=== PATIENT | female | born 1965 | race Caucasian/White ===

== ENCOUNTER 2023-11-07 15:17 | Inpatient (IN) | payer MEDICARE, MEDICAID, SELFPAY ==
--- NOTE | 2023-11-07 16:02 | XRR_ITS ---
PROCEDURE INFORMATION: Exam: XR Bilateral Hips Exam date and time: 11/07/2023 4:29 PM Age: 58 years old Clinical indication: Injury or trauma; Fall; Blunt trauma (contusions or hematomas); Left; Prior surgery; Surgery date: 6+ months; Surgery type: RT hip TECHNIQUE: Imaging protocol: Radiologic exam of the bilateral hips. Views: 2 views of hips with pelvis when performed. COMPARISON: No relevant prior studies available. FINDINGS: Bones/joints: Patient has had a previous right hip arthroplasty. No evidence for loosening of the surgical hardware. Mildly comminuted acute fracture of the l proximal/mid eft femoral neck with mild impaction along its posterior margin. No dislocation. Mild degenerative change at the left hip. Moderate degenerative changes of the right and left sacroiliac joints. Multilevel degenerative changes of varying severity in the visualized spine. Bones are diffusely osteopenic. Soft tissues: Mild soft tissue swelling around the proximal left femur. No radiopaque foreign body. Heterotopic bone formation lateral to the right hip that may be due to sequela of remote trauma and/or prior surgery. XR/XR hip BI 3-4V wo/w pel [id number] IMPRESSION: 1. Mildly comminuted acute fracture of the l proximal/mid eft femoral neck with mild impaction along its posterior margin. 2. Mild soft tissue swelling around the proximal left femur. 3. Patient has had a previous right hip arthroplasty. No evidence for loosening of the surgical hardware. 4. Heterotopic bone formation lateral to the right hip that may be due to sequela of remote trauma and/or prior surgery. 5. Incidental/nonacute findings are listed in the report.
--- NOTE | 2023-11-07 17:33 | PC.NURSE ---
NURSE RECEIVED VERBAL CONSENT FROM GUARDIAN VIA PHONE CALL
--- NOTE | 2023-11-07 17:38 | CTR_ITS ---
PROCEDURE INFORMATION: Exam: CT Abdomen And Pelvis Without Contrast Exam date and time: 11/07/2023 6:01 PM Age: 58 years old Clinical indication: Injury or trauma; Fall; Blunt; Generalized; Additional info: Fall/trauma TECHNIQUE: Imaging protocol: Computed tomography of the abdomen and pelvis without contrast. Sagittal and coronal reformatted images were created and reviewed. Radiation optimization: All CT scans at this facility use at least one of these dose optimization techniques: automated exposure control; mA and/or kV adjustment per patient size (includes targeted exams where dose is matched to clinical indication); or iterative reconstruction. COMPARISON: CR (PELVIS, ) 11/07/2023 4:29 PM RADIATION DOSE METRICS: Total DLP (mGy-cm): 753.74 FINDINGS: Limitations: Evaluation of solid organs and vasculature is limited without intravenous contrast. Lungs: Dependent atelectasis in the visualized lungs. Pleural spaces: No pleural effusion. Heart: Visualized cardiac chambers are unremarkable. Liver: The liver is unremarkable. Gallbladder and bile ducts: The gallbladder is unremarkable. No biliary ductal dilatation. Pancreas: The pancreas is unremarkable. No pancreatic ductal dilatation. Spleen: The spleen is unremarkable. Adrenal glands: The right and left adrenal glands are unremarkable. Kidneys and ureters: Nonobstructing stone in the right kidney measuring 3.4 mm. The left kidney is unremarkable. The right and left ureters are unremarkable. Stomach and bowel: No obstruction. No mucosal thickening. Appendix: The appendix is visualized and is unremarkable. No findings to suggest acute appendicitis. Intraperitoneal space: No free intraperitoneal air. No ascites. No loculated fluid collections to suggest an abscess. Vasculature: Mild atherosclerotic changes in the visualized arteries. No evidence for aortic aneurysm. Lymph nodes: No lymphadenopathy. Urinary bladder: The bladder is unremarkable. The bladder is unremarkable. Reproductive: Patient has had a previous hysterectomy. The ovaries are not definitely visualized, not an expected in a postmenopausal female. This may be due to ovarian atrophy. Alternatively, the patient may have had a previous bilateral oophorectomy. Bones/joints: The patient has had a previous right hip arthroplasty. Mild degenerative changes of the right and left sacroiliac joints. Heterotopic bone formation adjacent to the right hip that may be due to prior surgery and/or trauma. NuvaRing acute, comminuted fracture of the left femoral neck extending from the subcapital femur posteriorly to the proximal/mid femoral neck anteriorly. There is mild impaction of the posterior portion of the fracture. No dislocation. Mild degenerative change at the left hip. Multilevel degenerative changes of varying severity in the visualized spine. Soft tissues: Mild enlargement of the lower left psoas muscle and the left iliacus muscle, consistent with intramuscular hematomas. Mild hemorrhage in the adjacent lower retroperitoneum. Mild subcutaneous contusion lateral to the left hip. CT/CT abdomen pelvis wo con [id number] IMPRESSION: 1. Mild enlargement of the lower left psoas muscle and the left iliacus muscle, consistent with intramuscular hematomas. Mild hemorrhage in the adjacent lower retroperitoneum. If there is clinical concern for acute bleeding, repeat CT scan of the abdomen/pelvis with intravenous contrast would be recommended. 2. Mild degenerative changes of the right and left sacroiliac joints. Heterotopic bone formation adjacent to the right hip that may be due to prior surgery and/or trauma. NuvaRing acute, comminuted fracture of the left femoral neck extending from the subcapital femur posteriorly to the proximal/mid femoral neck anteriorly. There is mild impaction of the posterior portion of the fracture. 3. Nonobstructing right renal stone. 4. Mild subcutaneous contusion lateral to the left hip.
--- NOTE | 2023-11-07 18:12 | P.HP_ITS ---
Providers/Chief Complaint 2 Chief Complaint: LEFT HIP PAIN S/P FALL History of Present Illness Kita Farias is a 58 year old female resident of [facility], nonverbal at baseline, ambulates using a walker, uses diabetic diet presented after sustaining a fall, as per the niece at the bedside patient sometimes experiences weakness of her lower extremities and that possibly happened today when she was try to get out of bed. She fell on the floor, in the ER she has been diagnosed with hip fracture. Dr. Ma will see her in the morning. Hospitalist will admit. As per the family patient is very anxious and would like to keep her dolls under the blanket She does not use oxygen Will place Castellano catheter Will keep her pain under control with opioids will add bowel regimen IV fluids overnight Review of Systems 2 General: Reports: ROS unobtainable due to medical condition PFSH Acute 2 PFSH: Medical History (Updated 11/07/23 @ 18:49 by Mora Sky MD) Diabetic acidosis, type II Nonverbal Cerebral palsy Mother had measles, congenital Surgical History (Updated 11/07/23 @ 18:49 by Mora Sky MD) H/O oophorectomy Physical Exam 2 Narrative: Patient is laying flat Anxious Tachycardic Currently on room air Left leg twisted rotated outwards Patient seems to be in pain Awake and alert Able to make eye contact Nonverbal She would like to hold her dolls in a blanket Data 11/07/23 17:47 11/07/23 17:47 A&P Assessment and plan (1) Fracture of hip, left, closed: Qualifiers: Encounter type: initial encounter Qualified Code(s): S72.002A - Fracture of unspecified part of neck of left femur, initial encounter for closed fracture (2) Accidental fall: Qualifiers: Encounter type: initial encounter Qualified Code(s): W19.XXXA - Unspecified fall, initial encounter (3) Traumatic retroperitoneal hematoma: Plan Hip fracture Traumatic retroperitoneal hematoma Monitor CBC H&H Continue IV fluids N.p.o. Opioids Place Castellano catheter I will repeat contrast with angiogram Nonobstructive right renal stone Will place Castellano catheter IV fluids overnight Patient is diabetic Gets very anxious She likes to keep her dolls in a blanket Full code Resident of [facility] Bed rest for now Dr. Ma has been consulted Attestations 2 Medical Necessity Statement*: More than 2 midnights anticipated Diagnoses Fracture of hip, left, closed S72.002A Encounter type: initial encounter Accidental fall W19.XXXA Encounter type: initial encounter Traumatic retroperitoneal hematoma S36.892A
--- NOTE | 2023-11-07 18:25 | ED_ITS ---
HPI - Extremity Problem 2 General: Chief complaint: Extremity Injury, Lower Stated complaint: LEFT HIP PAIN S/P FALL Time Seen by Provider: 11/07/23 15:20 History of Present Illness: 58-year-old female presents to the emerg ency department via EMS personnel from her [facility]. Patient is nonverbal and has a history of developmental delay and cerebral palsy. Patient did receive 2 mg of Ativan via EMS secondary to anxiety. Per the family member that is accompanying her the patient is normally ambulatory but had an accidental unwitnessed fall today at the [facility] and the nursing staff at the [facility] stated that she was found on the floor. Patient does have tenderness to palpation to the left hip area, otherwise she is unable to provide any medical history. Review of Systems 2 General: Reports: ROS unobtainable due to medical condition and ROS unobtainable due to mental status [facility] ED 2 PFSH: Medical History (Updated 11/08/23 @ 14:50 by Ashley Evans MD) Diabetic acidosis, type II Nonverbal Cerebral palsy Mother had measles, congenital Surgical History (Updated 11/07/23 @ 18:49 by Mora Sky MD) H/O oophorectomy Physical Exam 2 Narrative: EXAM NARRATIVE: Constitutional: the patient appears well nourished and has significant delayed cognitive development, nonverbal and history of cerebral palsy. Vital signs as documented. Very anxious appearing. She is alert at present and the family member that is accompanying her states this is her baseline mental status. Head, eyes, ears, nose, mouth, throat: Normocephalic, atraumatic. Pupils-equal, round, reactive to light. No scleral icterus. Normal-appearing external ears. Normal appearing nasal turbinates, no drainage. No obvious oral lesions Neck: Supple, trachea is midline, no lymphadenopathy, no jugular venous distension, thyromegaly, or carotid bruits. No palpable step-offs, tenderness, or crepitus, normal alignment. Patient is not having any difficulty with flexion, extension or lateral rotation. Lungs: clear to auscultation to all lung hassan. Symmetrical rise and fall of chest, no obvious signs of increased work of breathing at present. Cardiac: Regular rate and rhythm, positive S1, S2. No murmurs, rubs or gallops that I can appreciate Abdomen: Soft, non-tender to palpation, normal active bowel sounds to all quadrants. No palpable masses, no organomegaly and abdominal bruits. Extremities: 2+ pulses in the upper extremities that are equal bilaterally, 2+ pulses in the lower extremities that are equal bilaterally. Left hip and greater trochanter area is severely tender to palpation, the patient's left lower extremity is shortened and internally rotated. Capillary refill is less than 3 seconds. She has sensation to all extremities, she moves remaining extremities without difficulty. Skin: Warm, dry, intact. Course 2 Vital Signs: Vital signs: Vital Signs Temperature 97.9 F 11/08/23 15:12 Pulse Rate 109 H 11/08/23 15:12 Respiratory Rate 17 11/08/23 15:12 Blood Pressure 151/77 11/08/23 15:12 Pulse Oximetry 93 11/08/23 15:12 Oxygen Delivery Me thod Room Air 11/08/23 15:12 Oxygen Flow Rate 2 11/07/23 20:51 MDM - Extremity (Nontraumatic) Medical Decision Making Physical exam completed and documented I will obtain laboratory evaluation to include a CBC, CMP and radiographic examination as I am concerned that she does have a right hip/pelvis fracture. I have reviewed the radiographic exam and it does appear that the patient has a comminuted impacted left hip fracture. I have consulted the orthopedic physician on-call Dr. Ma and discussed the patient's case and she advised that she would consult and request that I contact the hospitalist physician for admission to the hospital service. I did contact the hospitalist Dr. Sky and he accepted the patient for admission and additional evaluation. Medical Records I reviewed the patient's medical records. Lab Data I reviewed the patient's lab results. 11/08/23 05:16 11/08/23 05:16 Radiology Impressions Hip/Pelvis X-Ray 11/07/23 16:02 IMPRESSION: 1. Mildly comminuted acute fracture of the l proximal/mid eft femoral neck with mild impaction along its posterior margin. 2. Mild soft tissue swelling around the proximal left femur. 3. Patient has had a previous right hip arthroplasty. No evidence for loosening of the surgical hardware. 4. Heterotopic bone formation lateral to the right hip that may be due to sequela of remote trauma and/or prior surgery. 5. Incidental/nonacute findings are listed in the report. Abdomen/Pelvis CT 11/07/23 17:38 IMPRESSION: 1. Mild enlargement of the lower left psoas muscle and the left iliacus muscle, consistent with intramuscular hematomas. Mild hemorrhage in the adjacent lower retroperitoneum. If there is clinical concern for acute bleeding, repeat CT scan of the abdomen/pelvis with intravenous contrast would be recommended. 2. Mild degenerative changes of the right and left sacroiliac joints. Heterotopic bone formation adjacent to the right hip that may be due to prior surgery and/or trauma. NuvaRing acute, comminuted fracture of the left femoral neck extending from the subcapital femur posteriorly to the proximal/mid femoral neck anteriorly. There is mild impaction of the posterior portion of the fracture. 3. Nonobstructing right renal stone. 4. Mild subcutaneous contusion lateral to the left hip. ADDENDUM: 11/07/232009 Urgent results were discussed with ROSIE Dobbins on 11/07/2023 at 8:07 PM LOADING [employer]OVEL OILER. Abdomen/Pelvis CTA 11/07/23 18:56 IMPRESSION: 1. Stable enlargement of the left psoas muscle and left iliacus muscle consistent with intramuscular hematomas. Stable adjacent mild hemorrhage in the lower left retroperitoneum. No evidence for active bleeding. 2. Stable comminuted and displaced fracture of the left femoral neck extending from the subcapital femur posteriorly to the proximal/mid femoral neck anteriorly. Stable posterior angulation of the distal fracture fragment. 3. Stable nonobstructing right renal stone. 4. Mild subcutaneous contusion lateral to the left hip. 5. 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 6. Mild atherosclerotic disease. No occlusion, thrombosis, stenosis, extravasation, dissection, or aneurysm. 7. Incidental/nonacute findings are listed in the report. COMMENTS: Urgent results were discussed with ROSIE Dobbins on 11/07/2023 at 8:07 PM LOADING SH[employer]EL OILER. Laboratory Results WBC 11.79 10^3/uL (3.29-11.43) H 11/07/23 17:47 RBC 3.52 10^6/uL (3.85-5.65) L 11/07/23 17:47 Hgb 10.00 g/dL (11.27-16.99) L 11/07/23 17:47 Hct 32.0 % (36-47) L 11/07/23 17:47 MCV 90.9 fl (85-98) 11/07/23 17:47 MCH 28.4 pg (27-33) 11/07/23 17:47 MCHC 31.3 g/dL (30-55) 11/07/23 17:47 RDW 14.7 % (12.1-15.1) 11/07/23 17:47 Plt Count 351 10^3/cmm (157-399) 11/07/23 17:47 MPV 9.0 fL (7.4-10.4) 11/07/23 17:47 Neut % (Auto) 77.1 % 11/07/23 17:47 Lymph % (Auto) 15.2 % 11/07/23 17:47 [place] % (Auto) 7.3 % 11/07/23 17:47 Eos % (Auto) 0.0 % 11/07/23 17:47 Baso % (Auto) 0.1 % 11/07/23 17:47 Neut # (Auto) 9.09 10^3/uL (1.8-7.7) H 11/07/23 17:47 Lymph # (Auto) 1.8 10^3/uL (0.8-4.8) 11/07/23 17:47 [place] # (Auto) 0.9 10^3/uL (0.2-0.9) 11/07/23 17:47 Eos # (Auto) 0.0 10^3/uL (0.0-0.8) 11/07/23 17:47 Baso # (Auto) 0.0 10^3/uL (0.0-0.1) 11/07/23 17:47 Nucleated RBC % (auto) 0 % 11/07/23 17:47 Nucleated RBCs # 0.0 /100WBC 11/07/23 17:47 PT 12.50 SECONDS (12.1-14.9) 11/07/23 17:47 INR 0.91 (0.8-1.2) 11/07/23 17:47 APTT 26.4 SECONDS (23.9-36.7) 11/07/23 17:47 Sodium 139 mmol/L (136-145) 11/07/23 17:47 Potassium 5.1 mmol/L (3.5-5.1) 11/07/23 17:47 Chloride 100 mmol/L (98-107) 11/07/23 17:47 Carbon Dioxide 26 mmol/L (22-29) 11/07/23 17:47 Anion Gap 18.1 (5-19) 11/07/23 17:47 BUN 28 mg/dL (6-20) H 11/07/23 17:47 Creatinine 1.2 mg/dL (0.5-0.9) H 11/07/23 17:47 GFR Calculation 46.0 mL/min (90-130) L 11/07/23 17:47 Glucose 216 mg/dL (65-115) H 11/07/23 17:47 Calculated Osmolality 300 mOsm/kg (285-295) H 11/07/23 17:47 Calcium 9.9 mg/dL (8.5-10.5) 11/07/23 17:47 Total Bilirubin 0.2 mg/dL (0.15-1.2) 11/07/23 17:47 AST 19 U/L (0-32) 11/07/23 17:47 ALT 17 U/L (0-33) 11/07/23 17:47 Alkaline Phosphatase 80 U/L (35-105) 11/07/23 17:47 Total Protein 7.6 g/dL (6.6-8.7) 11/07/23 17:47 Albumin 4.3 g/dL (3.5-5.2) 11/07/23 17:47 Globulin 3.3 g/dL (1.3-4.6) 11/07/23 17:47 All radiology interpretation(s) finalized by discharge Discharge Plan Discharge Patient Disposition: Admitted As Inpatient Admit Provider: Mora Sky Clinical Impression: Fracture of hip, left, closed, Accidental fall Condition: Stable Coding Level of Care Code ED Filling Winder for Reji Mcnally
[2023-11-07 18:31] VITALS: BP 123/74; PULSE 119; O2SAT 92
[2023-11-07 18:32] LABS: Basophils % 0.1 %; Lymphocytes # 1.8 10^3/uL (0.8-4.8); Lymphocytes % 15.2 %; Mean Corpuscular HGB Conc 31.3 g/dL (30-55); Mean Corpuscular Hemoglobin 28.4 pg (27-33); Mean Corpuscular Volume 90.9 fl (85-98); Monocytes # 0.9 10^3/uL (0.2-0.9); Monocytes % 7.3 %; Neutrophils # 9.09 10^3/uL (1.8-7.7); Neutrophils % 77.1 %; Nucleated Red Blood Cells % 0 %; Platelet Count 351 10^3/cmm (157-399); Red Blood Count 3.52 10^6/uL (3.85-5.65); Red Cell Distribution Width 14.7 % (12.1-15.1); White Blood Count 11.79 10^3/uL (3.29-11.43)
[2023-11-07 18:47] LABS: INR 0.91 (0.8-1.2)
[2023-11-07 18:48] LABS: Partial Thromboplastin Time 26.4 SECONDS (23.9-36.7)
[2023-11-07 18:53] LABS: Alanine Aminotransferase 17 U/L (0-33); Albumin Level 4.3 g/dL (3.5-5.2); Alkaline Phosphatase 80 U/L (35-105); Anion Gap 18.1 (5-19); Aspartate Amino Transferase 19 U/L (0-32); Blood Urea Nitrogen 28 mg/dL (6-20); Calcium 9.9 mg/dL (8.5-10.5); Carbon Dioxide 26 mmol/L (22-29); Chloride 100 mmol/L (98-107); Globulin 3.3 g/dL (1.3-4.6); Glucose 216 mg/dL (65-115); Osmolality Calculated 300 mOsm/kg (285-295); Potassium 5.1 mmol/L (3.5-5.1); Sodium 139 mmol/L (136-145); Total Bilirubin 0.2 mg/dL (0.15-1.2); Total Protein 7.6 g/dL (6.6-8.7)
--- NOTE | 2023-11-07 18:56 | CTR_ITS ---
PROCEDURE INFORMATION: Exam: CTA Abdomen and Pelvis With Contrast Exam date and time: 11/07/2023 7:15 PM Age: 58 years old Clinical indication: Injury or trauma; Blunt trauma (contusions or hematomas); Pelvic area; Prior surgery; Surgery date: 6+ months; Surgery type: Oophorectomy; Patient HX: From long-term for unwitnessed fall. Left psoas/iliacus muscle hematoma with retroperitoneal hemorrhage noted on abd/pel w/o. Decreased hgb and hct. Left hip fracture. ; Additional info: Retroperitoneal hematoma TECHNIQUE: Imaging protocol: Computed tomographic angiography of the abdomen and pelvis with contrast. Exam focused on the arteries. 3D rendering (Not supervised by radiologist): MIP and/or 3D reconstructed images were created by the technologist. Radiation optimization: All CT scans at this facility use at least one of these dose optimization techniques: automated exposure control; mA and/or kV adjustment per patient size (includes targeted exams where dose is matched to clinical indication); or iterative reconstruction. Contrast material: OMNI 350; Contrast volume: 100 ml; Contrast route: INTRAVENOUS (IV); COMPARISON: CT abdomen pelvis wo con [id number] 11/07/2023 6:01 PM RADIATION DOSE METRICS: Total DLP (mGy-cm): 1913.28 FINDINGS: Lungs: Dependent atelectasis in the lungs bilaterally. Pleural spaces: No pleural effusion. Heart: Visualized portions of the heart are unremarkable. Aorta: Mild calcified and noncalcified plaque. No occlusion, thrombosis, stenosis, extravasation, dissection, or aneurysm. Celiac trunk and mesenteric arteries: Unremarkable. No occlusion, thrombosis, stenosis, extravasation, dissection, or aneurysm. Renal arteries: Right renal artery is unremarkable. 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 No occlusion, thrombosis, stenosis, extravasation, dissection, or aneurysm. Right iliac arteries: Mild calcified plaque. No occlusion, thrombosis, stenosis, extravasation, dissection, or aneurysm. Left iliac arteries: Mild calcified plaque. No occlusion, thrombosis, stenosis, extravasation, dissection, or aneurysm. Liver: The liver is unremarkable. Gallbladder and bile ducts: The gallbladder is unremarkable. No biliary ductal dilatation. Pancreas: The pancreas is unremarkable. No pancreatic ductal dilatation. Spleen: The spleen is unremarkable. Adrenal glands: The right and left adrenal glands are unremarkable. Kidneys and ureters: Stable nonobstructing stones in the right kidney, the larger measures 3.6 mm. The left kidney is unremarkable. The right and left ureters are unremarkable. Stomach and bowel: No obstruction. No mucosal thickening. Appendix: The appendix is visualized and is unremarkable. No findings to suggest acute appendicitis. Intraperitoneal space: No free intraperitoneal air. No ascites. No loculated fluid collections to suggest an abscess. Retroperitoneal space: Stable enlargement of the left psoas muscle and left iliacus muscle consistent with intramuscular hematomas. Stable adjacent mild hemorrhage in the lower left retroperitoneum. Lymph nodes: No lymphadenopathy. Urinary bladder: The bladder is unremarkable for the degree of distension. Reproductive: The uterus, right ovary, and left ovary are unremarkable. Bones/joints: Stable comminuted and displaced fracture of the left femoral neck extending from the subcapital femur posteriorly to the proximal/mid femoral neck anteriorly. Stable posterior angulation of the distal fracture fragment. Mild degenerative change at the left hip. Stable changes consistent with a right hip arthroplasty with heterotopic bone formation adjacent to the right hip that may be due to prior trauma and/or surgery. Multilevel degenerative changes of varying severity in the visualized spine. Bones are diffusely osteopenic. Soft tissues: Mild subcutaneous contusion lateral to the left hip. CT/CT angio abdomen pelvis [id number] IMPRESSION: 1. Stable enlargement of the left psoas muscle and left iliacus muscle consistent with intramuscular hematomas. Stable adjacent mild hemorrhage in the lower left retroperitoneum. No evidence for active bleeding. 2. Stable comminuted and displaced fracture of the left femoral neck extending from the subcapital femur posteriorly to the proximal/mid femoral neck anteriorly. Stable posterior angulation of the distal fracture fragment. 3. Stable nonobstructing right renal stone. 4. Mild subcutaneous contusion lateral to the left hip. 5. 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 6. Mild atherosclerotic disease. No occlusion, thrombosis, stenosis, extravasation, dissection, or aneurysm. 7. Incidental/nonacute findings are listed in the report. COMMENTS: Urgent results were discussed with ROSIE Dobbins on 11/07/2023 at 8:07 PM WRONG ADDRESS CLERK.
[2023-11-07] MEDS: iohexol 350 mg/mL 500 mL Btl (per mL) IV (19:24)
[2023-11-07 20:14] LABS: Hematocrit 30.7 % (36-47)
[2023-11-07] MEDS: ondansetron 2 mg/ML SDV 2 mL 4 MG IVP (20:20)
[2023-11-07 20:22] VITALS: BP 163/98; PULSE 121; RESP 21; O2SAT 91
[2023-11-07] MEDS: morphine 4 mg/mL SDV 1 mL IVP (20:22)
[2023-11-07 20:51] VITALS: BP 149/104; PULSE 136; RESP 26; O2SAT 96
--- NOTE | 2023-11-07 21:01 | PC.NURSE ---
Will called to report Dr Mcclain finding for the patient's non-contrast CT. Patient has a stable left Femoral head fracture with stable intramuscular hematomas surrounding then fracture.
[2023-11-07 21:03] VITALS: BP 162/93; PULSE 120; RESP 24; TEMP 37.2; O2SAT 99
--- NOTE | 2023-11-07 22:11 | P.CONIM_ITS ---
Providers/Reason For Consult 2 Consulting Physician/Specialty*: Ashley Evans MD - Orthopedics Reason for Consult*: Left subcapital hip fracture Requesting Physician: Brian Lu MD Attending Physician: Mora Sky MD History of Present Illness History of Present Illness Kita Farias is a 58 year old female who resides iIn a long-term care facility secondary to cerebral palsy and developmental delay. The patient is nonverbal, but reportedly was ambulatory prior to this fall. Patient had an unwitnessed fall and was found on the floor. She had pain over the left hip area.n a long- term care facility secondary to cerebral palsy and developmental delay. The patient is nonverbal, but reportedly was ambulatory prior to this fall. Patient had an unwitnessed fall and was found on the floor. She had pain over the left hip area. She was brought to the emergency department per EMS, and was found to have a subcapital left hip fracture. Review of Systems 2 General: Reports: ROS unobtainable due to medical condition and ROS unobtainable due to mental status Medications/Allergies Home Medications Medication Instructions Recorded Confirmed Last Taken Type acetaminophen 500 mg tablet 500 mg PO BID 11/08/23 11/08/23 11/07/23 08:39 History aspirin 81 mg chewable tablet 81 mg PO DAILY 11/08/23 11/08/23 11/07/23 08:39 History bisacodyl 10 mg rectal suppository 10 mg [place] DAILY PRN Constipation 11/08/23 11/08/23 Unknown History bisacodyl 5 mg tablet,delayed 5 mg PO DAILY PRN Constipation 11/08/23 11/08/23 10/15/23 08:26 History release (Dulcolax (bisacodyl)) cholecalciferol (vitamin D3) 25 25 mcg PO DAILY 11/08/23 11/08/23 11/07/23 08:39 History mcg (1,000 unit) tablet hydrocodone 5 mg-acetaminophen 325 1 tab PO BID PRN Pain 11/08/23 11/08/23 11/07/23 13:13 History mg tablet insulin aspart U-100 100 unit/mL 6 unit SUBCUT TIDWM 11/08/23 11/08/23 11/07/23 08:39 History (3 mL) subcutaneous pen (Novolog FlexPen U-100 Insulin aspart) insulin degludec 100 unit/mL (3 18 unit SUBCUT BEDTIME 11/08/23 11/08/23 11/06/23 19:04 History mL) subcutaneous pen (Tresiba FlexTouch U-100 insulin) lisinopril 5 mg tablet 5 mg PO DAILY 11/08/23 11/08/23 11/07/23 08:39 History magnesium hydroxide 400 mg/5 mL 30 ml PO DAILY PRN Constipation 11/08/23 11/08/23 08/14/23 04:02 History oral suspension (Milk of Magnesia) metformin 1,000 mg tablet 1,000 mg PO BIDWM 11/08/23 11/08/23 11/07/23 08:39 History naloxone 0.4 mg/mL injection 0.4 mg SUBCUT Q3M PRN Opiate 11/08/23 11/08/23 Unknown History solution Reversal simvastatin 5 mg tablet 5 mg PO BEDTIME 11/08/23 11/08/23 11/06/23 17:09 History sodium phosphates 19 gram-7 118 ml [place] DAILY PRN Constipation 11/08/23 11/08/23 Unknown History gram/118 mL enema (Fleet Enema) Allergies Allergy/AdvReac Type Severity Reaction Status Date / Time oseltamivir [From Tamiflu] Allergy Unknown Verified 11/08/23 05:01 PFSH Acute 2 PFSH: Medical History (Updated 11/08/23 @ 14:50 by Ashley Evans MD) Diabetic acidosis, type II Nonverbal Cerebral palsy 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 X-rays and history have been reviewed the evening prior to surgical intervention. Data 11/08/23 05:16 11/08/23 05:16 Xray Ortho: My impression: I have personally reviewed the patient's imaging today as well as prior imaging from 2008 when the patient previously suffered a hip fracture. At that time, she had a completely displaced subcapital hip fracture which is visualized on x- rays and bipolar hip arthroplasty was placed. At the time of this admission, she again has a subcapital hip fracture, but it is impacted and slightly angulated with apex anterior angulation. A&P Assessment and plan (1) Subcapital fracture of left hip: This 58-year-old woman who has a diagnosis of cerebral palsy and is nonverbal but reportedly previously ambulatory is admitted with a subcapital left hip fracture with slight angulation. Upon admission, the patient was found to have bacteria in her urine, and she has been treated with greater than 12 hours of antibiotic therapy. The patient's sister who is power of deputy county attorney was contacted regarding therapy options. I discussed at length with her the risks and benefits of bipolar hip arthroplasty versus cannulated screws. She understands the potential risk of avascular necrosis with cannulated screw fixation, however, it is safer from the perspective of potential infection as well as dislocation. After this discussion, the sister agreed to proceed with cannulated screws, and this will be scheduled for the patient today. Consents will be signed verbally. Qualifiers: Encounter type: initial encounter Fracture type: closed Qualified Code(s): S72.012A - Unspecified intracapsular fracture of left femur, initial encounter for closed fracture (2) Accidental fall: Qualifiers: Encounter type: initial encounter Qualified Code(s): W19.XXXA - Unspecified fall, initial encounter (3) Traumatic retroperitoneal hematoma: (4) FLORINDA (acute kidney injury): (5) UTI (urinary tract infection): Coding Level of Care Code Acute Code for [facility] Fwd Diagnoses Closed subcapital fracture of left femur, initial encounter S72.012A Encounter type: initial encounter Fracture type: closed Accidental fall W19.XXXA Encounter type: initial encounter Traumatic retroperitoneal hematoma S36.892A FLORINDA (acute kidney injury) N17.9 UTI (urinary tract infection) N39.0
[2023-11-07 22:32] LABS: Glucose Point of Care 278 mg/dL (70-110)
[2023-11-07 22:45] LABS: Hematocrit 30.3 % (36-47)
[2023-11-07] MEDS: sodium chloride 0.9% 1,000 ML 75 ML IV (23:00)
[2023-11-08] VITALS (24 sets, daily range): BP systolic 91–156; BP diastolic 51–88; PULSE 71–122; RESP 12–20; TEMP 36.1–37.6; O2SAT 90–98
--- NOTE | 2023-11-08 | XR_ITS ---
WS: [id number] C-ARM RADIOGRAPHS LEFT HIP; 5 IMAGES HISTORY: OR PICS; LT HIP PINNING COMPARISON: None available. Intraoperative ORIF with 3 orthopedic screws stabilizing the femoral neck fracture in good position a nd alignment. IMPRESSION: Intraoperative imaging during ORIF of LEFT femoral neck fracture.
[2023-11-08 01:34] LABS: Add Urine Microscopic? YES
[2023-11-08 01:35] LABS: Glucose Urine UA 4+ (Normal); Ketones Urine 1+ (Negative); Protein Urine 1+ (Negative); Specific Gravity, Urine 1.015 (1.005-1.030); Urine Appearance SL Hazy (CLEAR); Urine Color Yellow (Yellow); pH Urine 5 (5-7)
[2023-11-08 01:36] LABS: Bacteria Urine 2+ /hpf; Bilirubin Urine Neg (Negative); Blood Urine Neg (Negative); Leukocyte Esterase Urine Trace (Negative); Mucus Urine 1+ /hpf; Nitrate Urine Positive (Negative); RBC Urine 0-4 /hpf (0-2); Squamous Epithelial Cell Urine 0-4 /hpf (0-5); Urobilinogen Urine Norm (Negative); WBC Urine 0-4 /hpf (0-5)
[2023-11-08 01:39] LABS: Glucose Point of Care 312 mg/dL (70-110)
[2023-11-08] MEDS: HYDROmorphone 1 mg/mL INJ 1 mL 0.2 MG IVP ×4 (02:12→18:12)
--- NOTE | 2023-11-08 02:39 | PC.NURSE ---
notified Dr russ of UA results, nitrate positive. order received for rocephin 1 gram IV Q24h given.
[2023-11-08] MEDS: cefTRIAXone 1,000 MG in sodium chloride 0.9% (plus) 50 ML 100 MG IV (03:34)
[2023-11-08] MEDS: acetaminophen 500 mg Tablet PO (04:29)
[2023-11-08 04:57] LABS: Glucose Point of Care 328 mg/dL (70-110)
[2023-11-08 05:28] LABS: Basophils % 0.1 %; Hematocrit 32.7 % (36-47); Lymphocytes # 1.4 10^3/uL (0.8-4.8); Lymphocytes % 14.8 %; Mean Corpuscular HGB Conc 31.8 g/dL (30-55); Mean Corpuscular Hemoglobin 28.8 pg (27-33); Mean Corpuscular Volume 90.6 fl (85-98); Monocytes # 0.8 10^3/uL (0.2-0.9); Monocytes % 8.3 %; Neutrophils # 7.26 10^3/uL (1.8-7.7); Neutrophils % 76.5 %; Nucleated Red Blood Cells % 0 %; Platelet Count 315 10^3/cmm (157-399); Red Blood Count 3.61 10^6/uL (3.85-5.65); Red Cell Distribution Width 14.4 % (12.1-15.1)
[2023-11-08 05:46] LABS: Blood Urea Nitrogen 22 mg/dL (6-20); Calcium 8.8 mg/dL (8.5-10.5); Carbon Dioxide 25 mmol/L (22-29); Chloride 103 mmol/L (98-107); Glucose 296 mg/dL (65-115); Magnesium 1.8 mg/dL (1.7-2.3); Osmolality Calculated 302 mOsm/kg (285-295); Sodium 139 mmol/L (136-145)
[2023-11-08 05:47] LABS: Anion Gap 16.6 (5-19); Potassium 5.6 mmol/L (3.5-5.1)
--- NOTE | 2023-11-08 07:46 | PC.NURSE ---
NPO d/t possible surgery for left hip. Pt unable to take medications with small sip of water, must be crushed in applesauce. Senna not given this AM d/t NPO/possible surgery.
[2023-11-08] MEDS: pantoprazole 40 mg SDV IVP ×2 (08:07→18:22)
[2023-11-08 09:10] LABS: Glucose Point of Care 247 mg/dL (70-110)
[2023-11-08] MEDS: calcium gluconate 0.9% NaCL 1 GM/50 ML PREMIX IV (10:09)
[2023-11-08] MEDS: insulin regular-human 10 UNIT in SYRINGE 1 EACH IVP (10:09)
--- NOTE | 2023-11-08 10:28 | PM.PN ---
Subjective Subjective: Blood sample is hemolyzed Will give insulin for hyperglycemia Recheck sugar within 15 to 30 minutes Charge nurse notified She does have positive nitrates and leukocyte esterase with bacteriuria Ceftriaxone was started overnight No fever or leukocytosis Spoke with Dr. Evans CT angiogram did not show active bleed I did not get a call back from vR Vitals/I&O/Wt Last Vital Signs Temp 97.9 F 11/08/23 07:20 Pulse 102 H 11/08/23 08:10 Resp 18 11/08/23 08:10 BP 156/88 11/08/23 07:20 Pulse Ox 93 11/08/23 08:10 O2 Del Method Room Air 11/08/23 08:10 O2 Flow Rate 2 11/07/23 20:51 11/07/23 11/08/23 11/08/23 22:59 06:59 14:59 Intake Total 400 / 400 Output Total 500 / 500 Balance -100 / -100 Weight last 48 hrs Weight 71.214 kg Weight 71.214 kg Weight 71.35 kg Physical Exam Narrative: Patient is resting comfortably Nonverbal I do not see any active signs of distress Castellano catheter in place Abdomen soft Euvolemic S1, S2 Currently on room air Tachycardia sinus tachycardia Urinary Catheter Management: Castellano: Cath Placed During This Visit: yes Reason for Continuing Indwelling Catheter: Required Immobilization for Trauma or Surgery or Anesthesia Urinary Catheter Date of Insertion: 11/07/23 Urinary Catheter Time of Insertion: 23:00 Data 11/08/23 05:16 11/08/23 05:16 A&P Assessment and plan (1) Accidental fall: Qualifiers: Encounter type: initial encounter Qualified Code(s): W19.XXXA - Unspecified fall, initial encounter (2) Fracture of hip, left, closed: Qualifiers: Encounter type: initial encounter Qualified Code(s): S72.002A - Fracture of unspecified part of neck of left femur, initial encounter for closed fracture (3) Traumatic retroperitoneal hematoma: (4) FLORINDA (acute kidney injury): (5) UTI (urinary tract infection): Plan Hip fracture Retroperitoneal hematoma UTI FLORINDA Hemolyzed blood sample Hyperglycemia Patient is n.p.o. Continue IV fluids I will give her regular insulin and check her sugar within 15 to 30 minutes Charge nurse notified Ceftriaxone added overnight by the dedicated local truck driver Patient is afebrile, no tachycardia or signs of sepsis Retroperitoneal hematoma: No active bleed as per CT angiogram I will hold off on anticoagulating agent She has received 1 unit PRBC with appropriate response, there is no hypertension no signs of active hemodynamic instability Hold metformin and lisinopril If no plan for surgical intervention today I will let patient have clear consistent carb diet and then make her n.p.o. after midnight Coordination of care done, spoke with Dr. Evans and the charge nurse Attestations Medical Necessity Statement*: Continue medical management Diagnoses Accidental fall W19.XXXA Encounter type: initial encounter Fracture of hip, left, closed S72.002A Encounter type: initial encounter Traumatic retroperitoneal hematoma S36.892A FLORINDA (acute kidney injury) N17.9 UTI (urinary tract infection) N39.0
[2023-11-08 10:44] LABS: Glucose Point of Care 157 mg/dL (70-110)
[2023-11-08 12:11] LABS: Glucose Point of Care 120 mg/dL (70-110)
[2023-11-08 12:11] LABS: Glucose Point of Care 117 mg/dL (70-110)
[2023-11-08 13:02] LABS: Glucose Point of Care 126 mg/dL (70-110)
[2023-11-08 13:50] LABS: Glucose Point of Care 124 mg/dL (70-110)
--- NOTE | 2023-11-08 14:58 | PM.PN ---
Subjective Subjective: Patient is seen in her room. She appears comfortable, but certainly is nonmobile. Medications: Reviewed: Yes Vitals/I&O/Wt Last Vital Signs Temp 97.7 F 11/08/23 12:00 Pulse 95 11/08/23 12:00 Resp 16 11/08/23 12:00 BP 115/71 11/08/23 12:00 Pulse Ox 93 11/08/23 12:00 O2 Del Method Room Air 11/08/23 12:00 O2 Flow Rate 2 11/07/23 20:51 11/07/23 11/08/23 11/08/23 22:59 06:59 14:59 Intake Total 400 / 400 1050 / 1050 Output Total 500 / 500 Balance -100 / -100 1050 / 1050 Weight last 48 hrs Weight 157 lb Weight 157 lb Weight 157 lb 4.8 oz Physical Exam Const: COMMON NORMALS: no acute distress, average body habitus and alert GENERAL APPEARANCE: cooperative and comfortable ORIENTATION/CONSCIOUSNESS: Yes awake HENMT: COMMON NORMALS: normocephalic and atraumatic HEAD & SCALP: normocephalic and atraumatic Chest: COMMONS NORMALS: normal inspection of the chest Resp: COMMON NORMALS: normal respiratory effort EFFORT & INSPECTION: Yes symmetric chest movement Extremity: LEFT LOWER EXTREMITY: Yes hip joint (Flexed and externally rotated on pillows. Pain with any range of motion.) Left hip: Yes neurovascular exam (Appears intact distally) Neuro: SENSORIUM/ORIENTATION: Yes alert Psych: ATTITUDE: Yes calm Skin: COMMON NORMALS: no rashes or lesions noted GENERAL SKIN EXAM: no rashes or lesions noted Urinary Catheter Management: Castellano: Cath Placed During This Visit: yes Reason for Continuing Indwelling Catheter: Required Immobilization for Trauma or Surgery or Anesthesia Urinary Catheter Date of Insertion: 11/07/23 Urinary Catheter Time of Insertion: 23:00 Data 11/08/23 05:16 11/08/23 05:16 A&P Assessment and plan (1) Subcapital fracture of left hip: This 58-year-old woman who has a diagnosis of cerebral palsy and is nonverbal but reportedly previously ambulatory is admitted with a subcapital left hip fracture with slight angulation. Upon admission, the patient was found to have bacteria in her urine, and she has been treated with greater than 12 hours of antibiotic therapy. The patient's sister who is power of admitted attorneys was contacted regarding therapy options. I discussed at length with her the risks and benefits of bipolar hip arthroplasty versus cannulated screws. She understands the potential risk of avascular necrosis with cannulated screw fixation, however, it is safer from the perspective of potential infection as well as dislocation. After this discussion, the sister agreed to proceed with cannulated screws, and this will be scheduled for the patient today. Consents will be signed verbally. Qualifiers: Encounter type: initial encounter Fracture type: closed Qualified Code(s): S72.012A - Unspecified intracapsular fracture of left femur, initial encounter for closed fracture (2) Accidental fall: Qualifiers: Encounter type: initial encounter Qualified Code(s): W19.XXXA - Unspecified fall, initial encounter (3) Traumatic retroperitoneal hematoma: (4) FLORINDA (acute kidney injury): (5) UTI (urinary tract infection): Attestations Medical Necessity Statement*: Ongoing care for hip fracture Coding Level of Care Code Acute Code for [facility] Fwd Diagnoses Closed subcapital fracture of left femur, initial encounter S72.012A Encounter type: initial encounter Fracture type: closed Accidental fall W19.XXXA Encounter type: initial encounter Traumatic retroperitoneal hematoma S36.892A FLORINDA (acute kidney injury) N17.9 UTI (urinary tract infection) N39.0
[2023-11-08] MEDS: acetaminophen 1,000 MG/100 ML PIGGYBACK 400 MG IV (15:24)
--- NOTE | 2023-11-08 15:43 | ANES.PREANE2 ---
Pre-Anesthetic Assessment Height/Weight: Weight 71.214 kg Temp Pulse Resp BP Pulse Ox O2 Del Method O2 Flow Rate 97.9 F 109 H 17 151/77 93 Room Air 2 11/08/23 15:12 11/08/23 15:12 11/08/23 15:12 11/08/23 15:12 11/08/23 15:12 11/08/23 15:12 11/07/23 20:51 Operation Date: 11/08/23 16:30 Proposed Procedures p Hip Screw(Left) - Ashley Evans MD Familial anesthetic complications: None Was Beta Tanesha taken within 24 hours: N/A Was Clonidine taken within 24 hours: N/A Last intake: Intake Last Liquid Date 11/07/23 Last Solid Date 11/07/23 Social No alcohol and No tobacco Exam alert, oriented x 3, clear to auscultation bilaterally and regular rate & rhythm Airway Dentition: other (no teeth) Comments: Comments: patient uncooperative with exam d/t mental status Difficulty opening jaw due to fusion - spoke with niece and sister for H & P CV/HEM Hypertension Metabolic Diabetes Mellitus Neuropsych crebreal palsy Anesthetic Plan ASA status: 3 Anesthesia: General Risk of > 500 ml blood loss (7ml/kg in children): No Medications/Allergies Home Medications Medication Instructions Recorded Confirmed Last Taken Type acetaminophen 500 mg tablet 500 mg PO BID 11/08/23 11/08/23 11/07/23 08:39 History aspirin 81 mg chewable tablet 81 mg PO DAILY 11/08/23 11/08/23 11/07/23 08:39 History bisacodyl 10 mg rectal suppository 10 mg [place] DAILY PRN Constipation 11/08/23 11/08/23 Unknown History bisacodyl 5 mg tablet,delayed 5 mg PO DAILY PRN Constipation 11/08/23 11/08/23 10/15/23 08:26 History release (Dulcolax (bisacodyl)) cholecalciferol (vitamin D3) 25 25 mcg PO DAILY 11/08/23 11/08/23 11/07/23 08:39 History mcg (1,000 unit) tablet hydrocodone 5 mg-acetaminophen 325 1 tab PO BID PRN Pain 11/08/23 11/08/23 11/07/23 13:13 History mg tablet insulin aspart U-100 100 unit/mL 6 unit SUBCUT TIDWM 11/08/23 11/08/23 11/07/23 08:39 History (3 mL) subcutaneous pen (Novolog FlexPen U-100 Insulin aspart) insulin degludec 100 unit/mL (3 18 unit SUBCUT BEDTIME 11/08/23 11/08/23 11/06/23 19:04 History mL) subcutaneous pen (Tresiba FlexTouch U-100 insulin) lisinopril 5 mg tablet 5 mg PO DAILY 11/08/23 11/08/23 11/07/23 08:39 History magnesium hydroxide 400 mg/5 mL 30 ml PO DAILY PRN Constipation 11/08/23 11/08/23 08/14/23 04:02 History oral suspension (Milk of Magnesia) metformin 1,000 mg tablet 1,000 mg PO BIDWM 11/08/23 11/08/23 11/07/23 08:39 History naloxone 0.4 mg/mL injection 0.4 mg SUBCUT Q3M PRN Opiate 11/08/23 11/08/23 Unknown History solution Reversal simvastatin 5 mg tablet 5 mg PO BEDTIME 11/08/23 11/08/23 11/06/23 17:09 History sodium phosphates 19 gram-7 118 ml [place] DAILY PRN Constipation 11/08/23 11/08/23 Unknown History gram/118 mL enema (Fleet Enema) Allergies Allergy/AdvReac Type Severity Reaction Status Date / Time oseltamivir [From Tamiflu] Allergy Unknown Verified 11/08/23 05:01 Current Medications Generic Name Dose Route Start Last Admin Trade Name Freq PRN Reason Stop Dose Admin Acetaminophen 500 mg 11/07/23 21:58 11/08/23 04:29 Acetaminophen 500 Mg Tablet PO 500 mg Q4H PRN Administration fever Hydromorphone HCl 0.2 mg 11/07/23 21:58 11/08/23 12:41 Hydromorphone 1 Mg/Ml Inj 1 Ml IVP 0.2 mg Q4H PRN Administration hip pain Sodium Chloride 1,000 mls @ 75 mls/hr 11/07/23 21:58 11/08/23 12:43 Sodium Chloride 0.9% IV Infused .[id number] KAM Infusion Ceftriaxone Sodium 1,000 mg/ 50 mls @ 100 mls/hr 11/08/23 02:45 11/08/23 05:02 Sodium Chloride IV Infused Q24H KAM Infusion Protocol Pantoprazole Sodium 40 mg 11/08/23 09:00 11/08/23 08:07 Pantoprazole 40 Mg Sdv IVP 40 mg BID KAM Administration Senna/Docusate Sodium 2 tab 11/08/23 09:00 11/08/23 07:46 Sennosides-Docusate Tablet PO Not Given BID KAM PFSH Anesthesia Medical History (Updated 11/08/23 @ 14:50 by Ashley Evans MD) Diabetic acidosis, type II Nonverbal Cerebral palsy Mother had measles, congenital Surgical History (Updated 11/07/23 @ 18:49 by Mora Sky MD) H/O oophorectomy Data Anesthesia 11/08/23 05:16 11/08/23 05:16 Short CBC 11/07/23 11/07/23 11/07/23 Range/Units 17:47 20:08 22:30 WBC 11.79 H (3.29-11.43) 10^3/uL Hgb 10.00 L 9.30 L 9.40 L (11.27-16.99) g/dL Hct 32.0 L 30.7 L 30.3 L (36-47) % MCV 90.9 (85-98) fl Plt Count 351 (157-399) 10^3/cmm Neut % (Auto) 77.1 % Neut # (Auto) 9.09 H (1.8-7.7) 10^3/uL 11/08/23 Range/Units 05:16 WBC 9.50 (3.29-11.43) 10^3/uL Hgb 10.40 L (11.27-16.99) g/dL Hct 32.7 L (36-47) % MCV 90.6 (85-98) fl Plt Count 315 (157-399) 10^3/cmm Neut % (Auto) 76.5 % Neut # (Auto) 7.26 (1.8-7.7) 10^3/uL BMP 11/07/23 11/08/23 17:47 05:16 Sodium 139 139 Potassium 5.1 5.6 H Chloride 100 103 Carbon Dioxide 26 25 BUN 28 H 22 H Creatinine 1.2 H 1.2 H Glucose 216 H 296 H Calcium 9.9 8.8 Liver Function 01/27/24 Range/Units 17:47 Total Bilirubin 0.2 (0.15-1.2) mg/dL AST 19 (0-32) U/L ALT 17 (0-33) U/L Alkaline Phosphatase 80 (35-105) U/L Albumin 4.3 (3.5-5.2) g/dL Urine 11/08/23 Range/Units 00:00 Urine Color Yellow (Yellow) Urine Appearance Sl hazy A (CLEAR) Urine pH 5 (5-7) Ur Specific [place] 1.015 (1.005-1.030) Urine Protein 1+ H (Negative) Urine Glucose (UA) 4+ H (Normal) Urine Ketones 1+ H (Negative) Urine Nitrate Positive H (Negative) Urine Bilirubin Neg (Negative) Ur Leukocyte Esterase Trace H (Negative) Urine RBC 0-4 H (0-2) /hpf Urine WBC 0-4 H (0-5) /hpf Blood Bank 11/07/23 22:30 Blood Type O Positive Rho(D) Type Rh positive Antibody Screen Negative Coags 11/07/23 17:47 PT 12.50 INR 0.91 APTT 26.4 Cardiac Studies: No Data to Display
[2023-11-08] MEDS: ceFAZolin 2,000 MG in sodium chloride 0.9% (plus) 50 ML 100 MG IV (15:45)
[2023-11-08] MEDS: ceFAZolin 1,000 mg SDV 1000 MG IRRIGATION (16:34)
[2023-11-08] MEDS: lidocaine-epi 2% 20 mL INJ INJECTION (16:35)
--- NOTE | 2023-11-08 17:23 | P.OP_ITS ---
Operative Report Date of procedure: November 08, 2023 Pre-op diagnosis: Slightly angulated and slightly displaced left subcapital hip fracture Post-op diagnosis: Slightly angulated and slightly displaced left subcapital hip fracture Post-op findings: Improved positioning with open manipulation of fracture Procedure done: Left hip open reduction internal fixation with manipulation of femoral head and neck and cannulated screw fixation Implants: Cannulated screws x 3, 6.5 x 85 mm Specimens removed/disposition: None Pathology: None Surgeon: Ashley Evans MD Consulting Psychiatrist: None Anesthesia: General (Per LMA, ASA 3 with local) Estimated blood loss (mL): 50 IV fluids (mL): 500 Urine output (mL): 50 Complications: None Findings: Slightly angulated subcapital left hip fracture which reduced with manipulation. Condition: stable Disposition: PACU (Then return to floor for postoperative rehabilitation as tolerated) Brief History: Kita Farias is a 58 year old female who resides iIn a long-term care facility secondary to cerebral palsy and developmental delay. The patient is nonverbal, but reportedly was ambulatory prior to this fall. Patient had an unwitnessed fall and was found on the floor. She had pain over the left hip area.n a long- term care facility secondary to cerebral palsy and developmental delay. The patient is nonverbal, but reportedly was ambulatory prior to this fall. Patient had an unwitnessed fall and was found on the floor. She had pain over the left hip area. She was brought to the emergency department per EMS, and was found to have a subcapital left hip fracture. Procedure: Patient is brought to the operating theater. After undergoing adequate general anesthesia per LMA, ASA 3, the patient was transferred to the fracture table, positioned on the table and fluoroscopic guidance obtained throughout the surgical procedure. Prior to the commencement of the surgical procedure, a surgical pause was performed. At the time of the surgical pause, we confirmed the site and side of surgery as well as preoperative surgical markings and appropriate and timely administration of IV antibiotics, Ancef 2 g. Availability of equipment was also confirmed. Fluoroscopy was used to confirm the fracture was appropriately reduced in both AP and lateral planes. An incision was then made beginning at about the level of the trochanter continuing distally along the lateral femur. In this way, we had access to place a bone hook into the hip to be able to attempt reduction and better positioning of the angulated femoral head. With the bone hook, fracture position did improve. This was held in position throughout the surgical procedure until the 3 screws had been placed into the hip joint. Fluoroscopy was used throughout the surgical procedure. 3 guidewires were placed into position with confirmation of appropriate placement with fluoroscopy in AP and lateral planes. These wires were then measured and appropriate screws were chosen. The appropriate screw size was cannulated screws 6.5 mm x 85 mm each. 3 of these were chosen. These were placed into position and again confirmation of appropriate position and length was accomplished with fluoroscopy. Once the screws were in appropriate position, attention was directed to closure. The hip was copiously irrigated with normal saline with antibiotics. Following this it was dried and closed. Tensor fascia alayna was closed with 0 Vicryl in an interrupted fashion. Subcutaneous tissues were closed with 2-0 Monocryl, and the skin was closed with a continuous 3-0 Monocryl subcuticular stitch. This was then covered with Dermabond, Steri-Strips, and OpSite. The patient was removed from the fracture table and returned to recovery in satisfactory condition. The patient will be discharged to the floor for postoperative rehabilitation and pain management. There were no specimens obtained. Related Problem List Diagnoses (1) Subcapital fracture of left hip:
--- NOTE | 2023-11-08 17:55 | ANE.PACU2 ---
Inpatient post-anesthesia follow up: Airway intact: Yes Vital signs: Temperature 98.4 F Pulse Rate 97 Respiratory Rate 15 Blood Pressure 133/80 Pulse Oximetry 91 Oxygen Delivery Me thod Room Air Oxygen Flow Rate 2 Fraction of Inspir ed Oxygen Hydration adequate: Yes Nausea and vomiting: No Pain level: 1 Mental status: Baseline
[2023-11-08 21:05] LABS: Glucose Point of Care 235 mg/dL (70-110)
[2023-11-08] MEDS: insulin glargine 100 units/1 mL 1 UNIT (22:22)
[2023-11-09] VITALS (9 sets, daily range): BP systolic 100–156; BP diastolic 57–80; PULSE 93–112; RESP 14–18; TEMP 36.9–37.4; O2SAT 91–97
[2023-11-09] MEDS: cefTRIAXone 1,000 MG in sodium chloride 0.9% (plus) 50 ML 100 MG IV (01:49)
[2023-11-09] MEDS: sodium chloride 0.9% 1,000 ML 75 ML IV (01:50)
[2023-11-09] MEDS: HYDROmorphone 1 mg/mL INJ 1 mL 0.2 MG IVP ×3 (02:00→17:59)
[2023-11-09 03:29] LABS: Basophils % 0.2 %; Eosinophils # 0.1 10^3/uL (0.0-0.8); Eosinophils % 0.6 %; Lymphocytes # 1.3 10^3/uL (0.8-4.8); Lymphocytes % 15.9 %; Mean Corpuscular HGB Conc 31.3 g/dL (30-55); Mean Corpuscular Hemoglobin 29.2 pg (27-33); Mean Corpuscular Volume 93.4 fl (85-98); Mean Platelet Volume 8.8 fL (7.4-10.4); Monocytes # 0.8 10^3/uL (0.2-0.9); Monocytes % 9.8 %; Neutrophils # 6.17 10^3/uL (1.8-7.7); Neutrophils % 73.1 %; Nucleated Red Blood Cells % 0 %; Platelet Count 249 10^3/cmm (157-399); Red Blood Count 3.32 10^6/uL (3.85-5.65); White Blood Count 8.44 10^3/uL (3.29-11.43)
[2023-11-09 03:57] LABS: Anion Gap 13.3 (5-19); Blood Urea Nitrogen 16 mg/dL (6-20); Calcium 8.5 mg/dL (8.5-10.5); Carbon Dioxide 26 mmol/L (22-29); Chloride 104 mmol/L (98-107); Glomerular Filtration Rate 56.7 mL/min (90-130); Glucose 183 mg/dL (65-115); Osmolality Calculated 294 mOsm/kg (285-295); Potassium 4.3 mmol/L (3.5-5.1); Sodium 139 mmol/L (136-145)
[2023-11-09 06:43] LABS: Glucose Point of Care 195 mg/dL (70-110)
[2023-11-09] MEDS: pantoprazole 40 mg SDV IVP ×2 (08:05→17:59)
[2023-11-09] MEDS: sennosides-docusate Tablet 2 TAB PO ×2 (08:05→17:59)
--- NOTE | 2023-11-09 10:26 | P.PN_ITS ---
Subjective 2 Subjective: Hemoglobin dropped 1 g I would like to monitor her 1 more day My plan was to initially discharge her with antibiotics however considering change in hemoglobin and H&H I would like to repeat H&H today and monitor her 1 more day Castellano catheter can be removed She is tachycardic Hypertensive Insulin sliding scale on board Vitals/I&O/Wt Last Vital Signs Temp 99.1 F 11/09/23 08:36 Pulse 112 H 11/09/23 08:36 Resp 16 11/09/23 08:36 BP 156/75 11/09/23 08:36 Pulse Ox 93 11/09/23 08:36 O2 Del Method Room Air 11/09/23 08:36 O2 Flow Rate 2 11/08/23 17:54 11/08/23 11/09/23 11/09/23 22:59 06:59 14:59 Intake Total 150.1 / 1200.1 50 / 1250.1 240 / 240 Output Total 600 / 1600 1000 / 2600 600 / 600 Balance -449.9 / -399.9 -950 / -1349.9 -360 / -360 Weight last 48 hrs Weight 71.078 kg Weight 71.214 kg Weight 71.214 kg Weight 71.35 kg Physical Exam 2 Narrative: Laying flat Tachycardic Currently hemodynamically stable Castellano catheter in place Abdomen soft Patient is holding her toys in her hand Neuroexam is limited Urinary Catheter Management: Castellano: Cath Placed During This Visit: yes Reason for Continuing Indwelling Catheter: Required Immobilization for Trauma or Surgery or Anesthesia Urinary Catheter Date of Insertion: 11/07/23 Urinary Catheter Time of Insertion: 23:00 Data 11/09/23 02:56 11/09/23 02:56 Micro: Microbiology 11/08/23 00:00 Urine Culture - Preliminary Urine Catheterized Gram Negative Rods A&P Assessment and plan (1) FLORINDA (acute kidney injury): (2) UTI (urinary tract infection): (3) Fracture of hip, left, closed: Qualifiers: Encounter type: initial encounter Qualified Code(s): S72.002A - Fracture of unspecified part of neck of left femur, initial encounter for closed fracture (4) Subcapital fracture of left hip: Qualifiers: Encounter type: initial encounter Fracture type: closed Qualified Code(s): S72.012A - Unspecified intracapsular fracture of left femur, initial encounter for closed fracture (5) Accidental fall: Qualifiers: Encounter type: initial encounter Qualified Code(s): W19.XXXA - Unspecified fall, initial encounter (6) Traumatic retroperitoneal hematoma: Plan I would like to monitor patient 1 more day Monitor H&H later in the day She is tachycardic No hypotension noted Mild drop in H&H noted If her hemoglobin stays stable I will be able to discharge her tomorrow back to the facility with oral antibiotics Will remove Castellano catheter today I am not sure if she will be able to participate with PT because she will not be able to follow commands UTI: Continue antibiotics switch to oral tomorrow at the time of discharge Retroperitoneal hematoma monitor H&H Disposition: Plan to discharge her by tomorrow DVT prophylaxis currently using SCDs Attestations 2 Medical Necessity Statement*: Continue medical management Diagnoses FLORINDA (acute kidney injury) N17.9 UTI (urinary tract infection) N39.0 Fracture of hip, left, closed S72.002A Encounter type: initial encounter Closed subcapital fracture of left femur, initial encounter S72.012A Encounter type: initial encounter Fracture type: closed Accidental fall W19.XXXA Encounter type: initial encounter Traumatic retroperitoneal hematoma S36.892A
[2023-11-09] MEDS: insulin lispro 100 unit/1 mL SUBCUT (12:01)
[2023-11-09 12:26] LABS: Glucose Point of Care 205 mg/dL (70-110)
[2023-11-09 12:26] LABS: Glucose Point of Care 249 mg/dL (70-110)
--- NOTE | 2023-11-09 13:36 | P.PN_ITS ---
Subjective 2 Subjective: Patient is seen in her room with unchanged mental status. She did have a decrease in her hemoglobin, and the hospitalist team wishes to monitor her for an additional day. Patient's family is in agreement. Medications: Reviewed: Yes Vitals/I&O/Wt Last Vital Signs Temp 99.1 F 11/09/23 08:36 Pulse 98 11/09/23 10:00 Resp 16 11/09/23 10:00 BP 156/75 11/09/23 08:36 Pulse Ox 94 11/09/23 10:00 O2 Del Method Room Air 11/09/23 10:00 O2 Flow Rate 2 11/08/23 17:54 11/08/23 11/09/23 11/09/23 22:59 06:59 14:59 Intake Total 150.1 / 1200.1 50 / 1250.1 240 / 240 Output Total 600 / 1600 1000 / 2600 600 / 600 Balance -449.9 / -399.9 -950 / -1349.9 -360 / -360 Weight last 48 hrs Weight 156 lb 11.2 oz Weight 157 lb Weight 157 lb Weight 157 lb 4.8 oz Physical Exam 2 Const: COMMON NORMALS: no acute distress, average body habitus and alert G ENERAL APPEARANCE: comfortable ORIENTATION/CONSCIOUSNESS: Yes awake HENMT: COMMON NORMALS: normocephalic and atraumatic HEAD & SCALP: n ormocephalic and atraumatic Chest: COMMONS NORMALS: normal inspection of the chest Resp: COMMON NORMALS: normal respiratory effort EFFORT & INSPECTION: Yes symmetric chest movement Extremity: LEFT LOWER EXTREMITY: Yes hip joint (Dressing is dry and intact) Left hip: Yes inspection (No significant ecchymosis) and Yes neurovascular exam (Cannot assess distally due to mental status) Neuro: SENSORIUM/ORIENTATION: Yes alert Psych: ATTITUDE: Yes calm Skin: COMMON NORMALS: no rashes or lesions noted GENERAL SKIN EXAM: no rashes or lesions noted Urinary Catheter Management: Castellano: Cath Placed During This Visit: yes Reason for Continuing Indwelling Catheter: Required Immobilization for Trauma or Surgery or Anesthesia Urinary Catheter Date of Insertion: 11/07/23 Urinary Catheter Time of Insertion: 23:00 Data 11/10/23 06:32 11/10/23 06:32 Micro: Microbiology 11/08/23 00:00 Urine Culture - Preliminary Urine Catheterized Gram Negative Rods A&P Assessment and plan (1) Subcapital fracture of left hip: This 58-year-old woman who has a diagnosis of cerebral palsy and is nonverbal, but reportedly previously ambulatory is admitted with a subcapital left hip fracture with slight angulation. Patient underwent open reduction and cannulated screw fixation of a left subcapital hip fracture. This was well- tolerated, but the patient did not ambulate prior to discharge from the hospital. She has been monitored by the medical service. Secondary to a decrease in her H&H since yesterday, they would like to maintain her for 1 more day in hospital to evaluate for subsequent drop in hemoglobin and to monitor additional medical issues. Qualifiers: Encounter type: initial encounter Fracture type: closed Qualified Code(s): S72.012A - Unspecified intracapsular fracture of left femur, initial encounter for closed fracture Attestations 2 Medical Necessity Statement*: Ongoing care following hip fracture Coding Level of Care Code Acute Code for Chg Fwd Diagnoses Closed subcapital fracture of left femur, initial encounter S72.012A Encounter type: initial encounter Fracture type: closed
[2023-11-09 13:55] LABS: Hematocrit 29.8 % (36-47)
[2023-11-09 17:28] LABS: Glucose Point of Care 140 mg/dL (70-110)
[2023-11-09 20:06] LABS: Glucose Point of Care 172 mg/dL (70-110)
[2023-11-09] MEDS: insulin glargine 100 units/1 mL 15 UNIT SUBCUT (20:40)
[2023-11-10] MEDS: cefTRIAXone 1,000 MG in sodium chloride 0.9% (plus) 50 ML 100 MG IV (01:59)
[2023-11-10 04:00] VITALS: BP 134/79; PULSE 96; RESP 20; TEMP 37.2; O2SAT 92
[2023-11-10 06:44] LABS: Basophils % 0.2 %; Eosinophils # 0.1 10^3/uL (0.0-0.8); Eosinophils % 0.8 %; Hematocrit 31.4 % (36-47); Lymphocytes # 1.5 10^3/uL (0.8-4.8); Lymphocytes % 16.4 %; Mean Corpuscular HGB Conc 32.5 g/dL (30-55); Mean Corpuscular Hemoglobin 29.7 pg (27-33); Mean Corpuscular Volume 91.3 fl (85-98); Mean Platelet Volume 8.8 fL (7.4-10.4); Monocytes # 0.8 10^3/uL (0.2-0.9); Monocytes % 8.7 %; Neutrophils # 6.51 10^3/uL (1.8-7.7); Neutrophils % 73.7 %; Nucleated Red Blood Cells % 0 %; Platelet Count 263 10^3/cmm (157-399); Red Blood Count 3.44 10^6/uL (3.85-5.65); Red Cell Distribution Width 14.5 % (12.1-15.1); White Blood Count 8.84 10^3/uL (3.29-11.43)
[2023-11-10 07:08] LABS: Glucose Point of Care 169 mg/dL (70-110)
[2023-11-10 07:08] LABS: Anion Gap 16.9 (5-19); Blood Urea Nitrogen 16 mg/dL (6-20); Calcium 9.2 mg/dL (8.5-10.5); Carbon Dioxide 24 mmol/L (22-29); Chloride 100 mmol/L (98-107); Glomerular Filtration Rate 56.7 mL/min (90-130); Glucose 178 mg/dL (65-115); Osmolality Calculated 290 mOsm/kg (285-295); Potassium 3.9 mmol/L (3.5-5.1); Sodium 137 mmol/L (136-145)
[2023-11-10 07:37] VITALS: PULSE 96; RESP 20; O2SAT 92
[2023-11-10 08:00] VITALS: BP 143/83; PULSE 104; RESP 16; TEMP 36.6; O2SAT 92
[2023-11-10] MEDS: insulin lispro 100 unit/1 mL SUBCUT (08:36)
[2023-11-10] MEDS: pantoprazole 40 mg SDV IVP (08:37)
[2023-11-10] MEDS: sennosides-docusate Tablet 2 TAB PO (08:37)
--- NOTE | 2023-11-10 09:58 | PM.DCS ---
Discharge Providers Date of Admission: 11/07/23 18:12 Date of Discharge: November 10, 2023 Attending Provider at Admission: Mora Sky MD Attending Provider at Discharge: Mora Sky MD Diagnoses at Discharge Discharge Diagnosis (1) Subcapital fracture of left hip: Status: Acute Qualifiers: Encounter type: initial encounter Fracture type: closed Qualified Code(s): S72.012A - Unspecified intracapsular fracture of left femur, initial encounter for closed fracture Reason for Visit Reason for Visit: LEFT HIP PAIN S/P FALL Hospital Course Hospital Course 58-year female who is nonverbal, cerebral palsy, from [facility], presented after sustaining a fall, at baseline she is able to ambulate, eats diabetic diet, insulin-dependent, was admitted for management of hip fracture, Dr. Ma operated on 11/08 left hip open reduction internal fixation with manipulation of femoral head and neck cannulated screws, please note patient suffered from UTI, more than 100,000 colonies of bacteria on urine culture, she remained afebrile, leukocytosis improved, creatinine improved with IV fluid hydration, lisinopril was discontinued during hospitalization. Please note she was diagnosed with retroperitoneal hematoma, CTA abdomen pelvis was done on admission which showed no active bleeding, she was given 1 unit PRBC at the time of admission in order to prepare her for surgery, her hemoglobin remained stable, she remained hemodynamic stable with no signs of tachycardia or hypotension noted during hospitalization. Considering retroperitoneal hematoma she will not be able to get anticoagulating agent for DVT prophylaxis, her hemoglobin is 10 I will keep her on aspirin 325 mg twice daily regimen for now Physical Exam Narrative: Nonverbal Pleasant Oriented to herself Currently hemodynamically stable GCS [address] , Abdomen soft Urinary Catheter Management: Castellano: Cath Placed During This Visit: yes Reason for Continuing Indwelling Catheter: Required Immobilization for Trauma or Surgery or Anesthesia Urinary Catheter Date of Insertion: 11/07/23 Urinary Catheter Time of Insertion: 23:00 Discharge Data Studies Completed and Pending Completed Studies During Hospitalization Category Date Time Status CT abdomen pelvis wo con [id number] Stat Cat Scan 11/07/23 17:[address] angio abdomen pelvis [id number] Stat Cat Scan 11/07/23 18:56 Completed XR hip BI 3-4V wo/w pel [id number] Stat Exams 11/07/23 16:02 Completed XR hip LT 2-3V wo/w pel* [id number] Routine Exams 11/08/23 Completed Pending at discharge Category Date Time Status Blood Cultures ([facility]) Routine Lab 11/08/23 12:00 Received Blood Cultures ([facility]) Routine Lab 11/08/23 12:07 Received Urine Culture Stat Lab 11/08/23 00:00 Results Radiology Impressions Abdomen/Pelvis CT 11/07/23 17:38 IMPRESSION: 1. Mild enlargement of the lower left psoas muscle and the left iliacus muscle, consistent with intramuscular hematomas. Mild hemorrhage in the adjacent lower retroperitoneum. If there is clinical concern for acute bleeding, repeat CT scan of the abdomen/pelvis with intravenous contrast would be recommended. 2. Mild degenerative changes of the right and left sacroiliac joints. Heterotopic bone formation adjacent to the right hip that may be due to prior surgery and/or trauma. NuvaRing acute, comminuted fracture of the left femoral neck extending from the subcapital femur posteriorly to the proximal/mid femoral neck anteriorly. There is mild impaction of the posterior portion of the fracture. 3. Nonobstructing right renal stone. 4. Mild subcutaneous contusion lateral to the left hip. ADDENDUM: 11/07/232009 Urgent results were discussed with ROSIE Dobbins on 11/07/2023 at 8:07 PM [employer]. Abdomen/Pelvis CTA 11/07/23 18:56 IMPRESSION: 1. Stable enlargement of the left psoas muscle and left iliacus muscle consistent with intramuscular hematomas. Stable adjacent mild hemorrhage in the lower left retroperitoneum. No evidence for active bleeding. 2. Stable comminuted and displaced fracture of the left femoral neck extending from the subcapital femur posteriorly to the proximal/mid femoral neck anteriorly. Stable posterior angulation of the distal fracture fragment. 3. Stable nonobstructing right renal stone. 4. Mild subcutaneous contusion lateral to the left hip. 5. 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 6. Mild atherosclerotic disease. No occlusion, thrombosis, stenosis, extravasation, dissection, or aneurysm. 7. Incidental/nonacute findings are listed in the report. COMMENTS: Urgent results were discussed with ROSIE Dobbins on 11/07/2023 at 8:07 PM [employer]. Laboratory Results WBC 8.44 10^3/uL (3.29-11.43) 11/09/23 02:56 RBC 3.32 10^6/uL (3.85-5.65) L 11/09/23 02:56 Hgb 9.70 g/dL (11.27-16.99) L 11/09/23 02:56 Hct 31.0 % (36-47) L 11/09/23 02:56 MCV 93.4 fl (85-98) 11/09/23 02:56 MCH 29.2 pg (27-33) 11/09/23 02:56 MCHC 31.3 g/dL (30-55) 11/09/23 02:56 RDW 15.0 % (12.1-15.1) 11/09/23 02:56 Plt Count 249 10^3/cmm (157-399) 11/09/23 02:56 MPV 8.8 fL (7.4-10.4) 11/09/23 02:56 Neut % (Auto) 73.1 % 11/09/23 02:56 Lymph % (Auto) 15.9 % 11/09/23 02:56 Tucker % (Auto) 9.8 % 11/09/23 02:56 Eos % (Auto) 0.6 % 11/09/23 02:56 Baso % (Auto) 0.2 % 11/09/23 02:56 Neut # (Auto) 6.17 10^3/uL (1.8-7.7) 11/09/23 02:56 Lymph # (Auto) 1.3 10^3/uL (0.8-4.8) 11/09/23 02:56 Tucker # (Auto) 0.8 10^3/uL (0.2-0.9) 11/09/23 02:56 Eos # (Auto) 0.1 10^3/uL (0.0-0.8) 11/09/23 02:56 Baso # (Auto) 0.0 10^3/uL (0.0-0.1) 11/09/23 02:56 Nucleated RBC % (auto) 0 % 11/09/23 02:56 Nucleated RBCs # 0.0 /100WBC 11/09/23 02:56 PT 12.50 SECONDS (12.1-14.9) 11/07/23 17:47 INR 0.91 (0.8-1.2) 11/07/23 17:47 APTT 26.4 SECONDS (23.9-36.7) 11/07/23 17:47 Sodium 139 mmol/L (136-145) 11/09/23 02:56 Potassium 4.3 mmol/L (3.5-5.1) 11/09/23 02:56 Chloride 104 mmol/L (98-107) 11/09/23 02:56 Carbon Dioxide 26 mmol/L (22-29) 11/09/23 02:56 Anion Gap 13.3 (5-19) 11/09/23 02:56 BUN 16 mg/dL (6-20) 11/09/23 02:56 Creatinine 1.0 mg/dL (0.5-0.9) H 11/09/23 02:56 GFR Calculation 56.7 mL/min (90-130) L 11/09/23 02:56 Glucose 183 mg/dL (65-115) H 11/09/23 02:56 POC Glucose 195 mg/dL (70-110) H 11/09/23 06:28 Calculated Osmolality 294 mOsm/kg (285-295) 11/09/23 02:56 Calcium 8.5 mg/dL (8.5-10.5) 11/09/23 02:56 Phosphorus 4.0 mg/dL (2.5-4.5) 11/08/23 05:16 Magnesium 1.8 mg/dL (1.7-2.3) 11/08/23 05:16 Total Bilirubin 0.2 mg/dL (0.15-1.2) 11/07/23 17:47 AST 19 U/L (0-32) 11/07/23 17:47 ALT 17 U/L (0-33) 11/07/23 17:47 Alkaline Phosphatase 80 U/L (35-105) 11/07/23 17:47 Total Protein 7.6 g/dL (6.6-8.7) 11/07/23 17:47 Albumin 4.3 g/dL (3.5-5.2) 11/07/23 17:47 Globulin 3.3 g/dL (1.3-4.6) 11/07/23 17:47 Urine Color Yellow (Yellow) 11/08/23 00:00 Urine Appearance Sl hazy (CLEAR) A 11/08/23 00:00 Urine pH 5 (5-7) 11/08/23 00:00 Ur Specific [employer] 1.015 (1.005-1.030) 11/08/23 00:00 Urine Protein 1+ (Negative) H 11/08/23 00:00 Urine Glucose (UA) 4+ (Normal) H 11/08/23 00:00 Urine Ketones 1+ (Negative) H 11/08/23 00:00 Urine Blood Neg (Negative) 11/08/23 00:00 Urine Nitrate Positive (Negative) H 11/08/23 00:00 Urine Bilirubin Neg (Negative) 11/08/23 00:00 Urine Urobilinogen Norm mg/dL (Negative) 11/08/23 00:00 Ur Leukocyte Esterase Trace (Negative) H 11/08/23 00:00 Urine RBC 0-4 /hpf (0-2) H 11/08/23 00:00 Urine WBC 0-4 /hpf (0-5) H 11/08/23 00:00 Ur Squamous Epith Cells 0-4 /hpf (0-5) H 11/08/23 00:00 Amorphous Sediment Not Reportable 11/08/23 00:00 Urine Bacteria 2+ /hpf (NONE) H 11/08/23 00:00 Urine Mucus 1+ /hpf 11/08/23 00:00 Blood Type O Positive 11/07/23 22:30 Rho(D) Type Rh positive 11/07/23 22:30 Antibody Screen Negative 11/07/23 22:30 Crossmatch See Detail 11/07/23 22:30 Vitals Last Vital Signs Temp 99.1 F 11/09/23 08:36 Pulse 112 H 11/09/23 08:36 Resp 16 11/09/23 08:36 BP 156/75 11/09/23 08:36 Pulse Ox 93 11/09/23 08:36 O2 Del Method Room Air 11/09/23 08:36 O2 Flow Rate 2 11/08/23 17:54 Discharge Plan Discharge Patient Disposition: Xfer SNF Condition: Stable Prescriptions: New levofloxacin 750 mg tablet 750 mg PO DAILY 5 Days Qty: 5 0RF aspirin 325 mg tablet,delayed release (DR/EC) 325 mg PO BID Qty: 20 0RF Continued hydrocodone-acetaminophen 5-325 mg tablet 1 tab PO BID PRN (Reason: Pain) acetaminophen 500 mg tablet 500 mg PO BID Milk of Magnesia 400 mg/5 mL Suspension 30 ml PO DAILY PRN (Reason: Constipation) bisacodyl 10 mg Suppository 10 mg OR DAILY PRN (Reason: Constipation) metformin 1,000 mg tablet 1,000 mg PO BIDWM Fleet Enema 19-7 gram/118 mL Enema 118 ml OR DAILY PRN (Reason: Constipation) Dulcolax (bisacodyl) 5 mg Tablet,Delayed Release (Dr/Ec) 5 mg PO DAILY PRN (Reason: Constipation) lisinopril 5 mg tablet 5 mg PO DAILY cholecalciferol (vitamin D3) 25 mcg (1,000 unit) Tablet 25 mcg PO DAILY naloxone 0.4 mg/mL Solution 0.4 mg SUBCUT Q3M PRN (Reason: Opiate Reversal) Rx Instructions: NTExceed 10 mg total dose/episode simvastatin 5 mg tablet 5 mg PO BEDTIME Novolog FlexPen U-100 Insulin 100 unit/mL (3 mL) insulin pen 6 unit SUBCUT TIDWM Tresiba FlexTouch U-100 100 unit/mL (3 mL) insulin pen 18 unit SUBCUT BEDTIME Discontinued aspirin 81 mg tablet,chewable 81 mg PO DAILY Discharge Orders: Discharge Order (Routine); Ordered 11/10/23 Ordered By: Mora Sky Discharge Attestations Time Spent in Discharge Care*: greater than 30 min Quality Metrics Clinical Quality Measures [ No reported AMI, CVA or VTE this stay] Coding Level of Care Code Acute Code for Chg Fwd Diagnoses Closed subcapital fracture of left femur, initial encounter S72.012A Encounter type: initial encounter Fracture type: closed
[2023-11-10 10:41] LABS: SARS Covid-2 Antigen negative (Negative)
[2023-11-10 11:18] VITALS: BP 105/70; PULSE 93; RESP 16; TEMP 36.8; O2SAT 94
[2023-11-10 12:03] LABS: Glucose Point of Care 147 mg/dL (70-110)
--- NOTE | 2023-11-10 12:15 | PC.NURSE ---
Report called to Raimundo at [facility]. PCS form completed for transfer.
[2023-11-10 14:45] VITALS: BP 105/70; PULSE 93; RESP 16; TEMP 36.8; O2SAT 94
== END 2023-11-10 14:48 | disposition skilled nursing facility (03) | DRG 956 ==
LOC: ER 18:36 → MEDSURG 20:49
PROVIDERS: Specialist; Admitting Provider Internal Medicine; Emergency Provider Internal Medicine; Visit Provider Internal Medicine
PROC: 0QS704Z Reposition Left Upper Femur with Internal Fixation Device, Open Approach (ICD-10-PCS; CPT 27236; principal; 2023-11-08 16:00)
PROC: 0QS704Z Reposition Left Upper Femur with Internal Fixation Device, Open Approach (ICD-10-PCS; 2023-11-08 16:00)
DX: S72.012A Unspecified intracapsular fracture of left femur, initial encounter for closed fracture (principal); S36.892A Contusion of other intra-abdominal organs, initial encounter; N17.9 Acute kidney failure, unspecified; N39.0 Urinary tract infection, site not specified; W19.XXXA Unspecified fall, initial encounter; Y92.129 Unspecified place in nursing home as the place of occurrence of the external cause; Z66 Do not resuscitate; E11.65 Type 2 diabetes mellitus with hyperglycemia; Z79.4 Long term (current) use of insulin; G80.9 Cerebral palsy, unspecified; R62.50 Unspecified lack of expected normal physiological development in childhood; N20.0 Calculus of kidney; F41.9 Anxiety disorder, unspecified
CPT/HCPCS: 36415; 36416; 36430; 51702; 73502; 73522; 74174; 74176; 76000; 80048; 80053; 81001; 82962; 83735; 84100; 85014; 85018; 85025; 85610; 85730; 86850; 86900; 86920; 87040; 87077; 87086; 87186; 87426; 96372; 96374; 96375; 99285; C1713; C9113; J0131; J0610; J0690; J0696; J1170; J1815; J2270; J2371; J2405; J2704; J3010; J7030; P9016; Q9967

== ENCOUNTER → 2023-12-07 09:46 | Outpatient (BNVA) | payer OTHER, MEDICAID, SELFPAY | PROVIDERS: PCP Internal Medicine; Visit Provider Nurse Practitioner | DX: Z98.890 Other specified postprocedural states; S72.012D Unspecified intracapsular fracture of left femur, subsequent encounter for closed fracture with routine healing; W19.XXXD Unspecified fall, subsequent encounter | CPT/HCPCS: 73502; 99024 ==

== ENCOUNTER → 2024-04-04 11:21 | Outpatient (BNVA) | payer MEDICARE, MEDICAID, SELFPAY | PROVIDERS: PCP Internal Medicine; Visit Provider Specialist | DX: S72.012D Unspecified intracapsular fracture of left femur, subsequent encounter for closed fracture with routine healing (principal); Z98.890 Other specified postprocedural states; X58.XXXD Exposure to other specified factors, subsequent encounter | CPT/HCPCS: 73502; 99214 ==